=== PATIENT | female | born 1980 | race Caucasian/White ===

== ENCOUNTER 2017-01-03 21:58 | Emergency (ER) | payer OTHER | END 2017-01-04 00:40 | disposition home or self-care (01) | LOC: ER 21:58 | DX: G43.909 Migraine, unspecified, not intractable, without status migrainosus (principal); I10 Essential (primary) hypertension; F17.210 Nicotine dependence, cigarettes, uncomplicated; Z90.49 Acquired absence of other specified parts of digestive tract; Z79.899 Other long term (current) drug therapy | CPT/HCPCS: 96361; 96374; 96375; J1200; J1885; J2765 ==

== ENCOUNTER 2017-01-05 20:10 | Emergency (ER) | payer OTHER ==
[2017-01-07] MEDS ORDERED: PRINIVIL20 MG PO (16:37)
[2017-01-07] MEDS ORDERED: SYNTHROID100 MCG PO (16:38)
[2017-01-07] MEDS ORDERED: BUSPIRONE HCL5 MG PO (16:39)
[2017-01-07] MEDS ORDERED: ZOLOFT50 MG PO (16:39)
[2017-01-07] MEDS ORDERED: NEURONTIN100 MG PO (16:40)
[2017-01-07] MEDS ORDERED: HYDROXYZINE HCL25 MG PO (16:43)
[2017-01-07] MEDS ORDERED: LIPITOR40 MG PO (16:44)
[2017-01-07] MEDS ORDERED: HUMALOG100 UNIT/1 SQ (16:44)
[2017-01-07] MEDS ORDERED: LEVEMIR100 UNIT/1 SQ (16:44)
== END 2017-01-06 00:02 | disposition critical access hospital (66) ==
LOC: ER 20:10
DX: T14.91 Suicide attempt (principal); E11.65 Type 2 diabetes mellitus with hyperglycemia; I10 Essential (primary) hypertension; E03.9 Hypothyroidism, unspecified; E78.5 Hyperlipidemia, unspecified; F41.9 Anxiety disorder, unspecified; F17.210 Nicotine dependence, cigarettes, uncomplicated; Z90.49 Acquired absence of other specified parts of digestive tract; Z79.899 Other long term (current) drug therapy
CPT/HCPCS: 96361; 96365; 96376

== ENCOUNTER 2017-01-05 20:10 | Observation (INO) | payer OTHER ==
[2017-01-07] MEDS ORDERED: PRINIVIL20 MG PO (16:37)
[2017-01-07] MEDS ORDERED: SYNTHROID100 MCG PO (16:38)
[2017-01-07] MEDS ORDERED: BUSPIRONE HCL5 MG PO (16:39)
[2017-01-07] MEDS ORDERED: ZOLOFT50 MG PO (16:39)
[2017-01-07] MEDS ORDERED: NEURONTIN100 MG PO (16:40)
[2017-01-07] MEDS ORDERED: HYDROXYZINE HCL25 MG PO (16:43)
[2017-01-07] MEDS ORDERED: LEVEMIR100 UNIT/1 SQ (16:44)
[2017-01-07] MEDS ORDERED: LIPITOR40 MG PO (16:44)
[2017-01-07] MEDS ORDERED: HUMALOG100 UNIT/1 SQ (16:44)
== END 2017-01-07 18:50 ==
LOC: ER 20:10 → ICU 22:56 → ER 01-06 00:02 → ICU 01-06 00:02
PROVIDERS: ADMIT Internal Medicine
DX: T14.91 Suicide attempt (principal); T43.592A Poisoning by other antipsychotics and neuroleptics, intentional self-harm, initial encounter; E11.65 Type 2 diabetes mellitus with hyperglycemia; I10 Essential (primary) hypertension; E87.6 Hypokalemia; E66.01 Morbid (severe) obesity due to excess calories; F41.9 Anxiety disorder, unspecified; F32.9 Major depressive disorder, single episode, unspecified; F17.210 Nicotine dependence, cigarettes, uncomplicated; Y99.2 Volunteer activity; Z79.899 Other long term (current) drug therapy; Z90.49 Acquired absence of other specified parts of digestive tract
CPT/HCPCS: 36415; 80307; 96372; 96374; G0378; G0480; J1650